=== PATIENT | female | born 1995 | race Caucasian/White ===

== ENCOUNTER 2016-10-16 07:42 | Emergency (ER) | payer MEDICAID ==
[~2016-10-16] VITALS: Ht 162.6 cm; Wt 63.0 kg
[~2016-10-16 07:42] MED LIST: CARB200T PO; CITA10TA8 PO; MINO100C PO; OMEP20CA9 PO; TRAZ50TA18 PO
[2016-10-16 07:45] VITALS: BP 112/64
[2016-10-16] MEDS ORDERED: DEXAMETHASONE 4 MG TABLET PO ONE (08:00)
[2016-10-16] MEDS ORDERED: DEXAMETHASONE 4 MG TABLET ONE (08:08)
== END 2016-10-16 08:48 | disposition home or self-care (01) ==
LOC: ED 08:15
DX: J02.0 Streptococcal pharyngitis (principal); K21.9 Gastro-esophageal reflux disease without esophagitis; F17.210 Nicotine dependence, cigarettes, uncomplicated
CPT/HCPCS: 99283

== ENCOUNTER 2017-01-22 23:48 | Emergency (ER) | payer MEDICAID ==
[~2017-01-22] VITALS: Ht 162.6 cm; Wt 59.3 kg
[2017-01-22 23:49] VITALS: BP 112/72
[2017-01-23] MEDS ORDERED: HYDROcodone/APAP 5/325 TABLET ONE (00:54)
[2017-01-23] MEDS ORDERED: DEXAMETHASONE 4 MG TABLET ONE (00:54)
[2017-01-23] MEDS ORDERED: KETOROLAC 30 MG/1 ML ONE (00:54)
[2017-01-23] MEDS ORDERED: KETOROLAC 30 MG/1 ML IM ONE (01:00)
[2017-01-23] MEDS ORDERED: DEXAMETHASONE 4 MG TABLET PO ONE (01:00)
[2017-01-23] MEDS ORDERED: HYDROcodone/APAP 5/325 TABLET PO ONE (01:00)
== END 2017-01-23 02:19 | disposition home or self-care (01) ==
LOC: ED 01-23 02:03
DX: G89.29 Other chronic pain (principal); M54.5 Low back pain; J02.9 Acute pharyngitis, unspecified
CPT/HCPCS: 87081; 87880; 96372; 99284; J1885

== ENCOUNTER 2017-11-25 20:21 | Emergency (ER) | payer BC, MEDICAID ==
[~2017-11-25] VITALS: Ht 162.6 cm; Wt 59.1 kg
[~2017-11-25 20:21] MED LIST changes: +TRAZ-136 PO; -TRAZ50TA18 PO
[2017-11-25 20:22] VITALS: BP 129/94
[2017-11-25 21:27] LABS: CULTURE INDICATED? YES; MICROSCOPIC INDICATED
== END 2017-11-25 22:34 | disposition home or self-care (01) ==
LOC: ED 22:25
DX: N39.0 Urinary tract infection, site not specified (principal); K21.9 Gastro-esophageal reflux disease without esophagitis
CPT/HCPCS: 36415; 81001; 84703; 87077; 87086; 87147; 87186; 99284

== ENCOUNTER 2020-07-12 05:25 | Emergency (ER) | payer MEDICAID, OTHER ==
[~2020-07-12] VITALS: Ht 162.6 cm; Wt 67.0 kg
[~2020-07-12 05:25] MED LIST changes: -MINO100C PO; +MINO100C61 PO; -TRAZ-136 PO; +TRAZ50TA66 PO
--- NOTE | 2020-07-12 05:45 | NUR ---
PT STATES " SOB, SORE THROAT, SINCE SATURDAY WORSE TONIGHT, LAST NIGHT ARROUND 1800 FELT DIZZINESS, EARACHES, LIGHTHEADEDNESS. TEMPERATURES AT 0200 THIS AM HAD A TEMPEARTURE OF 102 F. SHELIAL SHE TOOK YESTERDAY AM HELPED WITH SNEEZING. COUGH THAT HURTS. WHOLE BODY HURTS.
[2020-07-12] MEDS ORDERED: ACETAMINOPHEN 500 MG TABLET PO ONE (06:00)
[2020-07-12] MEDS ORDERED: DEXAMETHASONE 4 MG/ML, 1ML PO ONE (06:00)
[2020-07-12] MEDS ORDERED: KETOROLAC 30 MG/1 ML IM ONE (06:00)
[2020-07-12] MEDS ORDERED: KETOROLAC 30 MG/1 ML ONE (06:18)
[2020-07-12] MEDS ORDERED: ACETAMINOPHEN 500 MG TABLET ONE (06:18)
[2020-07-12] MEDS ORDERED: DEXAMETHASONE 4 MG/ML, 5ML ONE (06:23)
[2020-07-12 06:26] VITALS: BP 114/64
--- NOTE | 2020-07-12 06:55 | NUR ---
Patient given discharge instructions and they have confirmed that they understand the instructions. Patient ambulatory with steady gait.
== END 2020-07-12 06:57 ==
LOC: ED 06:07
DX: J03.00 Acute streptococcal tonsillitis, unspecified (principal); Z20.822 Contact with and (suspected) exposure to COVID-19; K21.9 Gastro-esophageal reflux disease without esophagitis; F17.200 Nicotine dependence, unspecified, uncomplicated
CPT/HCPCS: 87880; 96372; 99283; J1100; J1885; U0003

== ENCOUNTER 2020-08-02 19:59 | Emergency (ER) | payer OTHER ==
[~2020-08-02] VITALS: Ht 162.6 cm; Wt 66.5 kg
[2020-08-02 20:55] LABS: BASOPHILS % (AUTO) 1 % (0-1); EOSINOPHILS % (AUTO) 1 % (1-7); LYMPHOCYTES % (AUTO) 28 % (22-44); MD NO; MEAN CORPUSCULAR HEMOGLOBIN 28.9 pg (27.0-34.8); MEAN CORPUSCULAR HGB CONC 33.1 g/dL (32.4-35.8); MEAN PLATELET VOLUME 8.2 fL (7.4-10.4); MONOCYTES % (AUTO) 8 % (2-9); NEUTROPHILS % (AUTO) 64 % (42-75); PLATELET COUNT 300 x10^3/uL (130-400); RED BLOOD COUNT 4.28 x10^6/uL (3.82-5.3); RED CELL DISTRIBUTION WIDTH 15.5 % (9.6-15.2)
[2020-08-02] MEDS ORDERED: SODIUM CHLORIDE FLUSH 10ML SYR IVF ONE (21:00)
[2020-08-02] MEDS ORDERED: FAMOTIDINE 20 MG/2 ML IVPush ONE (21:00)
[2020-08-02] MEDS ORDERED: ONDANSETRON 2MG/ML, 2ML IVPush ONE (21:00)
[2020-08-02] MEDS ORDERED: SODIUM CHLORIDE 0.9% 1,000ML IVBOLUS ONE (21:00)
[2020-08-02] MEDS ORDERED: ONDANSETRON 2MG/ML, 2ML ONE (21:01)
[2020-08-02] MEDS ORDERED: MORPHINE SULFATE 4 MG/ML, 1ML ONE ×2 (21:02→21:27)
[2020-08-02] MEDS ORDERED: FAMOTIDINE 20 MG/2 ML ONE (21:02)
[2020-08-02] MEDS: MORPHINE SULFATE 4 MG/ML, 1ML IVPush PRN ×2 (21:06→21:30)
[2020-08-02 21:07] LABS: ALANINE AMINOTRANSFERASE 14 U/L (12-78); ALBUMIN 4.2 g/dL (3.4-5.0); ANION GAP 8 mmol/L (5-15); CALCIUM 8.4 mg/dL (8.5-10.1); CHLORIDE 107 mmol/L (98-107); CREATININE 0.78 mg/dL (0.55-1.02)
--- NOTE | 2020-08-02 21:09 | NUR ---
PT CAME IN OF RUQ ABD PAIN. HX OF GALLSTONES. IV STARTED. MEDICATED PER MAY. US IN PROGRESS
[2020-08-02 21:11] LABS: ALKALINE PHOSPHATASE 49 U/L (45-117); BILIRUBIN,TOTAL 0.5 mg/dL (0.2-1.0)
--- NOTE | 2020-08-02 21:31 | NUR ---
PT CO PAIN. MEDICATED PER MAR
[2020-08-02 22:04] LABS: MICROSCOPIC INDICATED
--- NOTE | 2020-08-02 22:20 | NUR ---
1st contact c pt. resting on cart, tearful, states pain is worse than when she came in. rated 9/10. family at bs. call light inreach.
[2020-08-02] MEDS ORDERED: HYDROmorphone 1 MG/ML, 1ML INJ ONE (22:44)
[2020-08-02] MEDS ORDERED: HYDROmorphone 1 MG/ML, 1ML INJ IV ONE (23:00)
--- NOTE | 2020-08-02 23:04 | NUR ---
PT MEDICATED PER MD TEJAL AT TO DISCUSS SX OPTIONS. PT HESITANT AT THIS TIME. WILL CTM.
[2020-08-02 23:44] VITALS: BP 131/58
== END 2020-08-02 23:45 | disposition home or self-care (01) ==
LOC: ED 21:18
DX: K80.20 Calculus of gallbladder without cholecystitis without obstruction (principal); R10.31 Right lower quadrant pain; R11.0 Nausea; K21.9 Gastro-esophageal reflux disease without esophagitis
CPT/HCPCS: 36415; 76700; 80053; 81001; 83690; 84703; 85025; 87086; 96361; 96374; 96375; 99284; J1170; J2270; J2405; J7030